=== PATIENT | female | born 1980 | race Caucasian/White ===

== ENCOUNTER 2019-05-03 09:00 | Outpatient (CLI) | payer OTHER | END 2019-05-03 10:00 | disposition home or self-care (01) | LOC: D.MAMMO 09:00 | PROVIDERS: ATTEND Family Medicine | DX: Z12.31 Encounter for screening mammogram for malignant neoplasm of breast (principal) ==

== ENCOUNTER → 2020-02-21 15:21 | Outpatient (CLI) | payer OTHER ==
[2020-02-21 18:57] LABS: GLUCOSE - CSF 65 MG/DL (40-75); PROTEIN - CSF 37 MG/DL (12-60)
[2020-02-21 21:55] LABS: APPEARANCE - CSF CLEAR; RBC - CSF 5 cmm (0-0)
== END | disposition home or self-care (01) ==
LOC: D.RAD 13:30 → D.CT 14:00
PROVIDERS: General Practice; ATTEND Family Medicine
DX: R50.9 Fever, unspecified (principal)